=== PATIENT | female | born 1990 | race Caucasian/White ===

== ENCOUNTER 2021-03-17 12:31 | Inpatient (IN) | payer OTHER ==
[~2021-03-17] VITALS: Ht 165.1 cm; Wt 72.7 kg
[~2021-03-17 12:31] MED LIST: CEFDINIR300 MG PO
[2021-03-17 15:30] LABS: BASOPHIL 0.3 % (0-2); EOSINOPHIL 0.4 % (0-5); HCT 28.1 % (37.0-47.0); HGB 9.4 g/dl (12.5-16.0); LYMPHOCYTE 6.7 % (15-48); MCH 27.9 pg (25.0-31.0); MCHC 33.5 g/dL (32.0-36.0); MCV 83.4 fL (78.0-100.0); MONOCYTE 4.9 % (0-12); MPV 12.1 fL (6.0-9.5); NEUTROPHIL 86.6 % (41-80); NRBC 0; PLT 234 K/uL (150-400); RBC 3.37 M/uL (4.20-5.40); RDW 14.4 % (11.5-14.0); WBC 12.6 K/uL (4.0-10.5)
[2021-03-17 15:59] LABS: LACTIC ACID 1.2 mmol/L (0.4-1.9)
[2021-03-17 16:01] LABS: CREATININE 0.96 mg/dL (0.51-0.95); POTASSIUM 3.5 mmol/L (3.5-5.1)
[2021-03-17 16:22] LABS: CORONAVIRUS 2019 SARS-COV-2 NEGATIVE (NEGATIVE); INFLUENZA A NAA NEGATIVE (NEGATIVE)
[2021-03-17 17:34] LABS: BILIRUBIN NEGATIVE (NEGATIVE); BLOOD 1+ Ery/uL (NEGATIVE); CLARITY CLEAR (CLEAR); COLOR YELLOW (YELLOW); GLUCOSE (U) NORMAL (NORMAL); LEUKOCYTES NEGATIVE Leu/uL (NEGATIVE); NITRITE NEGATIVE (NEGATIVE); PROTEIN 1+ mg/dL (NEGATIVE); UROBILINOGEN 0.2 mg/dL (0.2-1.0)
[2021-03-17 17:40] LABS: AMPHETAMINES NEGATIVE (NEGATIVE); BARBITURATES NEGATIVE (NEGATIVE); ECSTASY (MDMA) NEGATIVE (NEGATIVE); MARIJUANA (THC) NEGATIVE (NEGATIVE); METHADONE NEGATIVE (NEGATIVE); OPIATES NEGATIVE (NEGATIVE); OXYCODONE NEGATIVE (NEGATIVE)
[2021-03-17 17:43] LABS: BACTERIA 2+
[2021-03-17 20:44] LABS: INR 1.09 (0.9-1.2); PROTHROMBIN TIME 13.5 SECONDS (11.8-13.4)
[2021-03-17 20:45] LABS: PTT 32.1 SECONDS (24.4-34.7)
--- NOTE | 2021-03-18 07:26 | NUR ---
POSITIVE BLOOD CULTURE - GRAM + COCCI & CLUSTERS
[2021-03-18 15:00] LABS: BUN/CREAT RATIO (CALC) 35.2 RATIO; CREATININE 1.05 mg/dL (0.51-0.95); MAGNESIUM 2.7 mg/dL (1.8-2.4); PHOSPHORUS 2.5 mg/dL (2.6-4.7); POTASSIUM 3.5 mmol/L (3.5-5.1)
[2021-03-19 03:45] LABS: BASOPHIL 0.6 % (0-2); HCT 25.6 % (37.0-47.0); HGB 8.5 g/dl (12.5-16.0); LYMPHOCYTE 15.3 % (15-48); MCH 28.1 pg (25.0-31.0); MCHC 33.2 g/dL (32.0-36.0); MCV 84.8 fL (78.0-100.0); MONOCYTE 5.7 % (0-12); MPV 11.7 fL (6.0-9.5); NEUTROPHIL 74.4 % (41-80); NRBC 0; PLT 274 K/uL (150-400); RBC 3.02 M/uL (4.20-5.40); RDW 15.4 % (11.5-14.0); WBC 12.5 K/uL (4.0-10.5)
[2021-03-19 05:02] LABS: ALBUMIN 1.3 g/dL (3.4-5.0); BILIRUBIN - TOTAL 0.6 mg/dL (0.2-1.0); BUN/CREAT RATIO (CALC) 22.9 RATIO; CREATININE 2.14 mg/dL (0.51-0.95); GLOBULIN (CALCULATION) 4.1 g/dL; MAGNESIUM 2.9 mg/dL (1.8-2.4); PHOSPHORUS 2.8 mg/dL (2.6-4.7); POTASSIUM 3.3 mmol/L (3.5-5.1); TOTAL PROTEIN 5.4 g/dL (6.4-8.2)
[2021-03-19 15:27] LABS: RETICULOCYTE COUNT 1.1 % (1.0-2.0)
[2021-03-19 15:30] LABS: IRON % SATURATION 8.1 %SAT (20-50)
[2021-03-20 05:04] LABS: BASOPHIL 0.8 % (0-2); HCT 24.2 % (37.0-47.0); HGB 8.1 g/dl (12.5-16.0); LYMPHOCYTE 17.6 % (15-48); MCHC 33.5 g/dL (32.0-36.0); MCV 83.7 fL (78.0-100.0); MPV 11.2 fL (6.0-9.5); NRBC 0; PLT 280 K/uL (150-400); RBC 2.89 M/uL (4.20-5.40); RDW 15.5 % (11.5-14.0)
[2021-03-20 05:06] LABS: NEUTROPHIL 69.8 % (41-80)
[2021-03-20 05:45] LABS: ALBUMIN 1.3 g/dL (3.4-5.0); BILIRUBIN - TOTAL 0.5 mg/dL (0.2-1.0); C-REACTIVE PROTEIN 16.1 mg/dL (<=0.90); CREATININE 3.48 mg/dL (0.51-0.95); MAGNESIUM 2.6 mg/dL (1.8-2.4); PHOSPHORUS 3.9 mg/dL (2.6-4.7); POTASSIUM 4.3 mmol/L (3.5-5.1); TOTAL PROTEIN 5.3 g/dL (6.4-8.2)
--- NOTE | 2021-03-20 05:59 | NUR ---
0322 - Messaged Dr Domingo due to pt having increased labored breathing, increased IV fluids, and minimal urine output. Received an order for 1mg Bumex IV and reduction of IV fluids to 100ml/hr. 0546 - Messaged Dr Domingo due to pt being in pain in her rib cage and not getting relief with the current dilaudid that is ordered Q3hr. Rec'd a one time dose of [place] 10 PO.
--- NOTE | 2021-03-20 06:47 | NUR ---
BLADDER SCANNED THE PATIENT DUE TO HER REPORTING THAT SHE FEELS LIKE SHE HAS TO PEE BUT CAN NOT. THE BLADDER SCAN SHOWED 0 ML'S IN HER BLADDER. I FLUSHED HER MONGE AND IT IS PATENT.
--- NOTE | 2021-03-20 19:35 | NUR ---
FATHER OF PATIENT FOUND A PILL AND A HALF ON THE FLOOR AND ASKED IF IT WAS HERS THAT SHE HAD DROPPED. PILLS WERE TAKEN TO PHARMACY TO IDENTIFY. THEY WERE KLONOPIN. PHARMACY SEARCHED THEIR SYSTEM AND PATIENT WAS NEVER GIVEN THIS DRUG. HOUSE SUPERVISER WAS NOTIFIED AND . ROOM WAS SEARCHED FOR ANY OTHER DRUGS FOR SAFETY REASONS AND A BOTTLE OF ANTIBIOTICS WERE FOUND CEPHALEXIN 500MG. I PLACED BOTTLE IN BIN WITH NOTE, PHARMACY HAD LEFT SO COULD NOT CONFIRM MEDICATION. PATIENT WAS QUESTIONED ABOUT THE PILLS AND SHE DENIED SHE TOOK THEM AND DENIED HER BOYFRIEND BROUGHT THEM. ALL PROPER MANAGEMENT WAS NOTIFIED.
--- NOTE | 2021-03-20 20:41 | NUR ---
Spoke with Dr Rubin ([employer]) discussed labs. He requested a CMP for 12/20 am (already ordered) and stated that Dr Saleem would be in 12/20 am to see patient.
--- NOTE | 2021-03-21 01:14 | NUR ---
0008 - PT C/O INCREASED CHEST PRESSURE. ORDERED A EKG TO RULE OUT ANY CHANGES. NO CHANGES WERE INDICATED. PT CALMED DOWN AND WENT TO SLEEP.
[2021-03-21 05:48] LABS: BASOPHIL 0.4 % (0-2); EOSINOPHIL 1.5 % (0-5); HCT 22.2 % (37.0-47.0); HGB 7.4 g/dl (12.5-16.0); LYMPHOCYTE 12.7 % (15-48); MCH 28.2 pg (25.0-31.0); MCHC 33.3 g/dL (32.0-36.0); MCV 84.7 fL (78.0-100.0); MONOCYTE 3.6 % (0-12); MPV 10.7 fL (6.0-9.5); NEUTROPHIL 74.9 % (41-80); NRBC 0; PLT 256 K/uL (150-400); RBC 2.62 M/uL (4.20-5.40); RDW 15.8 % (11.5-14.0); WBC 16.1 K/uL (4.0-10.5)
[2021-03-21 06:14] LABS: ALBUMIN 1.3 g/dL (3.4-5.0); ALKALINE PHOSHATASE 74 U/L (46-116); ALT 61 U/L (14-59); AST 27 U/L (15-37); BILIRUBIN - TOTAL 0.5 mg/dL (0.2-1.0); BUN 76 mg/dL (7-18); BUN/CREAT RATIO (CALC) 14.9 RATIO; CHLORIDE 100 mmol/L (98-107); CO2 (BICARBONATE) 18 mmol/L (21-32); CREATININE 5.09 mg/dL (0.51-0.95); GLOBULIN (CALCULATION) 4.3 g/dL; GLUCOSE 103 mg/dL (74-106); MAGNESIUM 2.8 mg/dL (1.8-2.4); PHOSPHORUS 6.3 mg/dL (2.6-4.7); POTASSIUM 4.6 mmol/L (3.5-5.1); TOTAL PROTEIN 5.6 g/dL (6.4-8.2)
[2021-03-21 06:19] LABS: BAND 19 % (0-10); NEUTROPHILS(M) 46 % (41-80)
[2021-03-21 06:20] LABS: LYMPHOCYTE(M) 23 % (15-48); METAMYELOCYTE 10; MONOCYTE(M) 2 % (0-12); PLATELET ESTIMATE NORMAL; PLATELET MORPHOLOGY NORMAL
--- NOTE | 2021-03-21 16:10 | NUR ---
03/21/21 PICC LINE PLACEMENT ORDER RECEIVED FOR PICC LINE PLACEMENT. RISKS AND BENEFITS EXPLAINED. CONSENT SIGNED.TIME OUT DONE PER [place] [facility] RN AND ANY VASQUEZ RN. PT'S LEFT UPPER ARM BASILIC VEIN VISUALIZED USING THE SITE RITE 6 ULTRA MACHINE. PT THEN PREPPED AND DRAPED IN STERILE FASHION. THE AREA WAS CLEANSED WITH CHLORAPREP. THE AREA WAS NUMBED WITH 1CC OF 1% LIDOCAINE. A 21GA NEEEDLE WAS USED. GOOD BLOOD RETURN. THE GUIDE WIRE THREADED EASILY. THE NEEDLE WAS REMOVED AND THE SHEATH WAS PLACED OVER THE WIRE. THE WIRE WAS THEN REMOVED AND A CAP WAS PLACED ON THE END. THE PT WAS MEASURED FOR THE PICC PLACEMENT. PICC WAS TRIMMED AT 48CM CM AND FLUSHED. THE INTRODUCER WAS REMOVED AND THE PICC CATHETER WAS GUIDED INTO POSITION. THE SHEATH WAS PEELED BACK. A STERILE BIOPATCH WAS PLACED AT THE INSERTION SITE. WITH A 2X2 . A STAT LOCK WAS PLACED ON. A STERILE SORBAVIEW WAS PLACED OVER THE PICC LINE. A STAT PORTABLE CHEST XRAY WAS OBTAINED. PER RADIOLOGIST THE PICC LINE IS IN THE SVC. THE STYLET WAS REMOVED AND THE A CLEAR CAP WAS FLUSHED AND PLACED ON THE END. PT HAS A 4FR SINGLE LUMEN POWER PICC. TRIMMED AT 78 CM, INSERTION 0 CM, BICEPS 29 CM. GOOD BLOOD RETURN NOTED. PT TOLERATED WELL. REPORT TO NOEMY THOMPSON ON TCU.
[2021-03-21 16:30] LABS: BILIRUBIN 1+ mg/dL (NEGATIVE); BLOOD 3+ Ery/uL (NEGATIVE); CLARITY HAZY (CLEAR); COLOR RED (YELLOW); GLUCOSE (U) NORMAL (NORMAL); LEUKOCYTES 1+ Leu/uL (NEGATIVE); NITRITE POSITIVE (NEGATIVE); PROTEIN 3+ mg/dL (NEGATIVE); SPECIFIC GRAVITY 1.025 (1.001-1.030); UROBILINOGEN 0.2 mg/dL (0.2-1.0); pH 6.5 (5.0-9.0)
[2021-03-21 16:37] LABS: URINARY WBC TNTC
[2021-03-21 16:38] LABS: URINARY RBC TNTC
[2021-03-21 16:39] LABS: BACTERIA 1+
[2021-03-21 17:04] LABS: URINE CREATININE 197.19 mg/dL (29.00-226.00)
[2021-03-21 17:10] LABS: URINE TOTAL PROTEIN-RANDOM > 500.0 mg/dL (<11.9)
[2021-03-22 04:53] LABS: BASOPHIL 0.4 % (0-2); EOSINOPHIL 1.5 % (0-5); HCT 21.9 % (37.0-47.0); LYMPHOCYTE 10.3 % (15-48); MCHC 32.9 g/dL (32.0-36.0); MCV 85.2 fL (78.0-100.0); MONOCYTE 3.4 % (0-12); MPV 10.5 fL (6.0-9.5); NEUTROPHIL 77.8 % (41-80); NRBC 0; PLT 262 K/uL (150-400); RBC 2.57 M/uL (4.20-5.40); RDW 15.9 % (11.5-14.0)
[2021-03-22 04:56] LABS: HGB 7.2 g/dl (12.5-16.0); WBC 18.8 K/uL (4.0-10.5)
[2021-03-22 05:11] LABS: CREATININE 6.41 mg/dL (0.51-0.95); PHOSPHORUS 8.7 mg/dL (2.6-4.7); POTASSIUM 5.1 mmol/L (3.5-5.1)
--- NOTE | 2021-03-22 08:50 | NUR ---
0840: REPORT GIVEN TO EMS, PT TRANSFERRED TO [facility].
== END 2021-03-22 08:50 | disposition other institution (70) | DRG 871 ==
LOC: FER 12:31 → FTCU 03-18 01:19
PROVIDERS: Internal Medicine; Internal Medicine Nephrology; Nurse Practitioner Family; ADMIT Internal Medicine
PROC: 02HV33Z Insertion of Infusion Device into Superior Vena Cava, Percutaneous Approach (ICD-10-PCS; principal; 2021-03-21)
DX: A41.02 Sepsis due to Methicillin resistant Staphylococcus aureus (principal); I26.90 Septic pulmonary embolism without acute cor pulmonale; N17.0 Acute kidney failure with tubular necrosis; I33.0 Acute and subacute infective endocarditis; J15.211 Pneumonia due to Methicillin susceptible Staphylococcus aureus; N12 Tubulo-interstitial nephritis, not specified as acute or chronic; E87.1 Hypo-osmolality and hyponatremia; N28.0 Ischemia and infarction of kidney; F11.20 Opioid dependence, uncomplicated; R65.20 Severe sepsis without septic shock; E87.70 Fluid overload, unspecified; Z20.822 Contact with and (suspected) exposure to COVID-19; I07.9 Rheumatic tricuspid valve disease, unspecified; E86.0 Dehydration; E87.6 Hypokalemia; F17.210 Nicotine dependence, cigarettes, uncomplicated; D64.9 Anemia, unspecified; F15.10 Other stimulant abuse, uncomplicated; F12.10 Cannabis abuse, uncomplicated; B19.20 Unspecified viral hepatitis C without hepatic coma; Z82.49 Family history of ischemic heart disease and other diseases of the circulatory system
CPT/HCPCS: 36415; 71045; 71275; 76770; 80048; 80053; 80202; 80305; 81001; 82550; 82570; 82607; 82728; 82746; 82962; 83540; 83550; 83605; 83735; 83880; 84100; 84145; 84156; 84300; 84484; 85025; 85379; 85610; 85730; 86060; 86140; 86160; 86850; 86900; 86901; 86922; 87040; 87076; 87077; 87088; 87186; 93005; 94667; 94668; C1751; J1170; J1642; J1644; J1650; J1885; J2543; J3360; J3370; J7030; J7050; J7120; P9046; P9047; Q9967; U0002

== ENCOUNTER 2021-05-02 23:17 | Emergency (ER) | payer OTHER ==
[2021-05-02 23:43] LABS: BASOPHIL 0.5 % (0-2); EOSINOPHIL 1.4 % (0-5); HCT 25.6 % (37.0-47.0); HGB 7.7 g/dl (12.5-16.0); LYMPHOCYTE 49.4 % (15-48); MCH 26.7 pg (25.0-31.0); MCHC 30.1 g/dL (32.0-36.0); MCV 88.9 fL (78.0-100.0); MONOCYTE 5.3 % (0-12); MPV 9.3 fL (6.0-9.5); NEUTROPHIL 43.1 % (41-80); NRBC 0; PLT 593 K/uL (150-400); RBC 2.88 M/uL (4.20-5.40); RDW 17.7 % (11.5-14.0); WBC 13.4 K/uL (4.0-10.5)
[2021-05-03 00:03] LABS: ALBUMIN 2.9 g/dL (3.4-5.0); BILIRUBIN - TOTAL 0.5 mg/dL (0.2-1.0); BUN/CREAT RATIO (CALC) 16.9 RATIO; CREATININE 1.24 mg/dL (0.51-0.95); POTASSIUM 4.4 mmol/L (3.5-5.1); TOTAL PROTEIN 8.9 g/dL (6.4-8.2)
[2021-05-03 00:44] LABS: BILIRUBIN NEGATIVE (NEGATIVE); BLOOD 3+ Ery/uL (NEGATIVE); CLARITY CLEAR (CLEAR); COLOR YELLOW (YELLOW); GLUCOSE (U) NORMAL (NORMAL); LEUKOCYTES NEGATIVE Leu/uL (NEGATIVE); NITRITE NEGATIVE (NEGATIVE); PROTEIN 1+ mg/dL (NEGATIVE); UROBILINOGEN 0.2 mg/dL (0.2-1.0); pH 7.5 (5.0-9.0)
[2021-05-03 00:57] LABS: AMPHETAMINES NEGATIVE (NEGATIVE); BARBITURATES NEGATIVE (NEGATIVE); ECSTASY (MDMA) NEGATIVE (NEGATIVE); MARIJUANA (THC) NEGATIVE (NEGATIVE); METHADONE NEGATIVE (NEGATIVE); OPIATES NEGATIVE (NEGATIVE); OXYCODONE NEGATIVE (NEGATIVE)
[2021-05-03 01:09] LABS: BACTERIA 1+
[2021-05-03 01:10] LABS: AMORPHOUS URATES CRYSTALS TRACE
== END 2021-05-03 04:03 | disposition home or self-care (01) ==
LOC: FER 23:17
PROVIDERS: Internal Medicine
DX: T40.601A Poisoning by unspecified narcotics, accidental (unintentional), initial encounter (principal); R41.0 Disorientation, unspecified; F15.10 Other stimulant abuse, uncomplicated; D64.9 Anemia, unspecified
CPT/HCPCS: 36415; 71045; 80053; 80305; 81001; 83605; 84145; 85025; J2405; J7030; J7120

== ENCOUNTER 2021-08-29 11:32 | Emergency (ER) | payer OTHER | END 2021-08-29 14:00 | disposition left against medical advice (07) | LOC: FER 11:32 | DX: R51.9 Headache, unspecified (principal); Z53.29 Procedure and treatment not carried out because of patient's decision for other reasons; Z28.310 Unvaccinated for COVID-19 | CPT/HCPCS: 99281 ==

== ENCOUNTER 2021-12-26 21:55 | Emergency (ER) | payer OTHER ==
[2021-12-26 23:07] LABS: BASOPHIL 0.4 % (0-2); EOSINOPHIL 2.1 % (0-5); HCT 37.6 % (37.0-47.0); HGB 12.2 g/dl (12.5-16.0); LYMPHOCYTE 39.5 % (15-48); MCH 29.5 pg (25.0-31.0); MCHC 32.4 g/dL (32.0-36.0); MONOCYTE 7.4 % (0-12); MPV 10.1 fL (6.0-9.5); NEUTROPHIL 50.4 % (41-80); NRBC 0; PLT 292 K/uL (150-400); RBC 4.13 M/uL (4.20-5.40); RDW 13.2 % (11.5-14.0); WBC 4.7 K/uL (4.0-10.5)
[2021-12-26 23:34] LABS: LACTIC ACID 1.2 mmol/L (0.4-1.9)
[2021-12-26 23:35] LABS: ALBUMIN 3.7 g/dL (3.4-5.0); ALKALINE PHOSHATASE 61 U/L (46-116); ALT 54 U/L (14-59); AST 50 U/L (15-37); BILIRUBIN - TOTAL 0.3 mg/dL (0.2-1.0); BUN 13 mg/dL (7-18); BUN/CREAT RATIO (CALC) 15.3 RATIO; C-REACTIVE PROTEIN < 0.20 mg/dL (<=0.90); CHLORIDE 105 mmol/L (98-107); CO2 (BICARBONATE) 29 mmol/L (21-32); CREATININE 0.85 mg/dL (0.51-0.95); GLOBULIN (CALCULATION) 3.6 g/dL; GLUCOSE 115 mg/dL (74-106); POTASSIUM 3.7 mmol/L (3.5-5.1); TOTAL PROTEIN 7.3 g/dL (6.4-8.2)
[2021-12-26 23:35] LABS: CORONAVIRUS 2019 SARS-COV-2 NEGATIVE (NEGATIVE); INFLUENZA A NAA NEGATIVE (NEGATIVE)
== END 2021-12-27 00:45 | disposition home or self-care (01) ==
LOC: FER 21:55
PROVIDERS: Emergency Medicine
DX: R68.83 Chills (without fever) (principal); R52 Pain, unspecified; F17.200 Nicotine dependence, unspecified, uncomplicated; Z20.822 Contact with and (suspected) exposure to COVID-19; Z86.79 Personal history of other diseases of the circulatory system; Z28.310 Unvaccinated for COVID-19
CPT/HCPCS: 36415; 71045; 80053; 83605; 83880; 84484; 85025; 86140; 87040; U0002